=== PATIENT | female | born 1970 | race Caucasian/White ===

== ENCOUNTER 2019-08-28 12:52 | Emergency (ER) | payer BC ==
[~2019-08-28] VITALS: Ht 162.6 cm; Wt 129.7 kg
[2019-08-28 13:04] VITALS: Ht 162.6 cm; Wt 129.7 kg
[2019-08-28 14:07] VITALS: BP 136/77
== END 2019-08-28 14:07 | disposition home or self-care (01) ==
LOC: ED 12:52
DX: M54.5 Low back pain (principal); R03.0 Elevated blood-pressure reading, without diagnosis of hypertension
CPT/HCPCS: J1885